=== PATIENT | female | born 1950 | race Asian ===

== ENCOUNTER 2024-08-21 09:17 | Outpatient (AMB) | payer MEDICAID, SELFPAY ==
--- NOTE | 2024-08-21 09:31 | A.OFFVIS_ITS ---
Vital Signs 08/21/24 09:34 Height 5 ft 4.96 in Weight 143 lb 11.862 oz BMI 23.9 BP 146/70 H Blood Pressure Location Lt brachial Position Sitting Pulse 63 Intake Visit Reasons: Brusly scrn Intake Note: New patient in office today for colonoscopy screening. CC: Patient reports feeling bloated some times, and heartburn and acid reflux. Coordinator Of Placement Required: Yes Coordinator Of Placement Language: [place] Coordinator Of Placement Name: Son Accompanied by: Son Allergies No Known Allergies Allergy (Verified 08/21/24 09:37) HPI HPI Brusly scrn: Details: 74-year-old female here for preprocedural meeting to discuss a screening colonoscopy. She is referred by [facility] in [place]. PMX AFib Hypertension High cholesterol Hardware left thigh GERD * SURGICAL HISTORY femur fx s/p fall repair EGD 12 yrs ago, ? antral erosions that resolved. * ALLERGIES : NKDA * [employer]oc[employer] LABS:07/12/2024 unremarkable CBC, renal and hepatic panels shown to me that were done in [place] None in our system TODAY'S VISIT [place] #son translates per pt request This is her first colonoscopy. She has GERD but does not take any medicine for this, occasionally with fatty foods, spicy foods. No bowel problems. Her afib is controlled with beta chula medication no anticoagulation used, she denies any respiratory problems. There is no prior problems with anesthesia or sedation. No ID problems. There is no known FHX of crc cor polyps. [facility] Medical History No pertinent family history Surgical History History of surgery on lower extremity Social History Alcohol intake: never Patient Tobacco Use Status: Never used Tobacco Use of substances other than those prescribed or required for medical reasons: No Review of Systems Const Denies fatigue, Denies fever(s), Denies night sweats, Denies poor appetite and Denies weight loss Eyes Details: glasses Reports requires corrective lenses ENT Reports Normal hearing present, Denies dental pain, Denies dysphagia, Denies hearing loss, Denies mouth pain, Denies odynophagia, Denies throat swelling, Denies tongue swelling and Reports other (Dentition adequate) Card Reports no additional complaints Resp Reports no additional complaints GI Details: Denies abdominal pain, Denies melena, Denies bloating, Denies hematochezia, Denies constipation, Denies GI cramping, Denies dysphagia, Denies excessive flatus, Denies early satiety, Reports heartburn, Denies diarrhea, Denies nausea, Denies odynophagia, Denies vomiting and Denies hematemesis Skin/Breast Denies pruritus, Denies lesions, Denies rash and Denies jaundice Neuro Reports Normal hearing present and Denies Abnormal speech present Endo Denies fatigue Aller/Immun Denies throat swelling and Denies tongue swelling Physical Exam Vital Signs: Last Vital Signs Pulse 63 08/21/24 09:34 BP 146/70 H 08/21/24 09:34 BMI result Body Mass Index 23.9 Const General: cooperative, no acute distress, well developed and well groomed Nutritional Appearance: average body habitus and well nourished Orientation/consciousness: oriented to person, oriented to place and oriented to time Limitations: language barrier HEENT Head: Yes normocephalic and Yes atraumatic Eyes General: appearance normal, both eyes and all related structures Pupils: Equal, round and reactive pupils present Neck Neck: Yes normal visual inspection and Yes no lymphadenopathy Thyroid: Thyroid normal Resp Effort & Inspection: normal respiratory effort and able to speak in complete sentences Auscultation: clear to auscultation bilaterally Cardio Rate: regular rate Rhythm: regular rhythm Heart sounds: Normal, physiologic split S2 sound present Peripheral pulses: radial pulses present and posterior tibial pulses present GI Inspection: No distended and No Abdominal panniculus present Palpation (GI): Soft to palpation, nontender, no guarding, not rigid and No hepatosplenomegaly present Percussion: Yes normal to percussion Auscultation: normal bowel sounds Rectal Exam - Female: deferred Skin General skin exam: no rashes or lesions noted, turgor normal, skin not dry, no jaundice, No spider nevi and no striae Rashes: no rashes Nails: normal Neuro General: oriented to person, oriented to place and oriented to time Cranial nerves: Yes Equal, round and reactive pupils present and Yes Normal hearing present Speech: No Abnormal speech present Extrem General: Yes normal to inspection, No clubbing, No cyanosis and No edema Psych Appearance: grossly normal and well kempt Mental Status: mental status grossly normal Speech and movement: Normal speech and movement present Affect: normal affect Attitude: cooperative Thought process: Normal thought process present and not confabulating Thought content: Normal thought content present Insight: Good insight present (Psych) Judgement: Good judgement present (Psych) Assessment & Plan Assessment & Plan (1) Pre-op examination: Code(s): Z01.818 - Encounter for other preprocedural examination Category: Medical (2) Atrial fibrillation: Code(s): I48.91 - Unspecified atrial fibrillation Category: Medical Plan [place] #son translates per pt request This is her first colonoscopy. She has GERD but does not take any medicine for this, occasionally with fatty foods, spicy foods. No bowel problems. Her afib is controlled with beta chula medication no anticoagulation used, she denies any respiratory problems. There is no prior problems with anesthesia or sedation. No ID problems. There is no known FHX of crc cor polyps. Orders: Orders Colonoscopy - GI Use Only Today Z01.818 - Encounter for other preprocedural examination Medications: New peg 3350-electrolytes 236-22.74-6.74 -5.86 gram (Golytely) until fecal effluent is clear; do not exceed a total volume of 2,000 mL 240 mL PO Q10M 4,000 mL 0RF 1 day Z12.11 - Encounter for screening for malignant neoplasm of colon bisacodyl (Dulcolax (bisacodyl)) 10 mg (2 x 5 mg) PO BEDTIME 4 tabs 0RF 2 days Coding Level of Care Code New Pt Level 3 (24687) Diagnoses Pre-op examination Z01.818 Atrial fibrillation I48.91
[2024-08-21 09:34] VITALS: BP 146/70; PULSE 63; BMI 23.9
== END 2024-08-21 10:32 | disposition home or self-care (01) ==
LOC: HO.HGI 09:17
PROVIDERS: PCP Nurse Practitioner Family; Visit Provider Nurse Practitioner
DX: Z01.818 Encounter for other preprocedural examination (principal); Z12.11 Encounter for screening for malignant neoplasm of colon
CPT/HCPCS: 99202

== ENCOUNTER → 2024-08-21 09:17 | Outpatient (BNVA) | payer MEDICAID, SELFPAY | PROVIDERS: PCP Nurse Practitioner Family; Visit Provider Nurse Practitioner | DX: Z01.818 Encounter for other preprocedural examination (principal); I48.91 Unspecified atrial fibrillation | CPT/HCPCS: 99212 ==